=== PATIENT | male | born 1980 | race Caucasian/White ===

== ENCOUNTER 2016-10-31 16:47 | Inpatient (IN) | payer OTHER ==
[~2016-10-31] VITALS: Ht 167.6 cm; Wt 84.2 kg
[~2016-10-31 16:47] MED LIST: ALPRAZOLAM1 MG PO; AMBIEN; AMOXICILLIN875 MG PO; ANTABUSE; ANTABUSE250 MG PO; AUGMENTIN875 MG PO; BACTRIM DS TAB1 EACH PO; BACTRIM,SEPT1 TABLET; BACTRIM,SEPT1 TABLET PO; BENADRYL25 MG PO; BENADRYL50 MG PO; BUSPIRONE HCL15 MG PO; CAMPRAL333 MG PO; CELEXA; CELEXA10 MG PO; CITALOPRAM HBR20 MG PO; CLINDAMYCIN HC300 MG PO; CLONIDINE; Desyrel PO; ESCITALOPRAM OX20 MG PO; FLONASE16 G1 BOTH NARES; HYDROCODON-ACE1 EAC7 PO; KEFLEX500 MG PO; LEXAPRO; LEXAPRO10 MG PO; LORTAB 5-325 M1 EACH PO; MEDROL DOSEPAK4 MG PO; MELOXICAM7.5 MG PO; MOTRIN800 MG PO; NAPROSYN500 MG PO; NEO-SYNEPHRINE-15 ML BOTH NARES; NO HOME MEDS; NOHOMEMEDS; NORCO 10/3251 TABLET PO; NORCO 5/3251 TABLET PO; PERCOCET 5-3251 EACH PO; PERCOCET 5/31 TABLET PO; PREDNISONE10 M1 PO; QUETIAPINE FUM100 MG PO; ULTRACET1 TABLET PO; ULTRAM50 MG PO; VICODIN 5-3001 EACH PO; ZYRTEC10 M3 PO; celeXA PO
[2016-10-31 18:08] LABS: BASOPHIL COUNT 0.1 K/uL (0-0.1); EOSINOPHIL (%) 0.1 % (0-5); HEMATOCRIT 35.7 % (38.0-50.0); IMMATURE GRANULOCYTE (%) 0.9 % (0.0-0.7); IMMATURE GRANULOCYTE COUNT 0.2 K/uL; INSTRUMENT ABS NEUTROPHIL CT 18.4 K/uL; LYMPHOCYTE COUNT 0.9 K/uL (1.0-2.8); MCH 29.9 PG (29.0-34.0); MCHC 33.1 G/DL (30.0-36.0); MCV 90.4 FL (86-99); MEAN PLAT.VOLUME 9.8 uM^3 (9.0-12.4); MONOCYTE (%) 4.7 % (3-12); NEUTROPHIL (%) 89.3 % (45-76); NEUTROPHIL COUNT 18.4 K/uL (1.8-6.4); NRBC (%) 0.1 /100 WBC (0-0); PLATELET COUNT 234 K/uL (156-360); RBC DIS.WIDTH-CV 15.8 % (11.8-14.6); RBC DIS.WIDTH-SD 52.4 % (39-53); RED BLOOD COUNT 3.95 M/uL (4.00-5.50); WHITE BLOOD COUNT 20.6 K/uL (4.1-10.2)
[2016-10-31 18:13] LABS: BASE EXCESS 0.9 mEq/L (-3 to +3); BICARBONATE 27.1 mEq/L (22-26); CARBOXY HGB 6.1 % (0-5); METHEMOGLOBIN 1.6 % (0-1.5); PCO2 49 mm Hg (35-45); PO2 111 mm Hg (80-100); pH 7.35 (7.35-7.45)
[2016-10-31 18:14] LABS: COMMENTS - BLOOD GASES +C; DEVICE NRBM; FI02 100 %; O2 FLOW 20 L/MIN; SITE RR +A; TOTAL RESP RATE 20 resp/min
[2016-10-31 18:19] LABS: CHLORIDE 100 mEq/L (99-109); POTASSIUM 4.4 mEq/L (3.7-5.4); SODIUM 133 mEq/L (136-147)
[2016-10-31 18:21] LABS: GLUCOSE 120 mg/dL (70-99)
[2016-10-31 18:22] LABS: ANION GAP 9 MEQ/L (2-14)
[2016-10-31 18:23] LABS: TOTAL BILIRUBIN 0.6 mg/dL (0.0-1.0)
[2016-10-31 18:25] LABS: ALKALINE PHOSPHATASE 119 IU/L (3-129); GFR ESTIMATE (CALCULATED) > 59 mL/min/
[2016-10-31 18:26] LABS: UREA NITROGEN (BUN) 13 mg/dL (9-23)
[2016-10-31 19:01] LABS: ADD MIUA? YES; BILIRUBIN NEGATIVE; BLOOD NEGATIVE; COLOR AMBER ((YELLOW)); GLUCOSE (STRIP) NEGATIVE; KETONES 5; LEUKOCYTES NEGATIVE; NITRITE NEGATIVE; PROTEIN (STRIP) 100; SPECIFIC GRAVITY 1.019 (1.000-1.030)
[2016-10-31 19:08] LABS: BACTERIA RARE /HPF; EPITHELIAL CELLS RARE /HPF; HYALINE CASTS TNTC /LPF; MUCUS 3+ /LPF; RED BLOOD CELLS 0-5 /HPF (0-5); UCUL ADDED? NO
[2016-10-31 19:56] LABS: BASE EXCESS -4.3 mEq/L (-3 to +3); BICARBONATE 22.6 mEq/L (22-26); CARBOXY HGB 4.5 % (0-5); METHEMOGLOBIN 1.2 % (0-1.5); PCO2 48 mm Hg (35-45)
[2016-10-31 19:57] LABS: DEVICE HHNC; O2 FLOW 40 L/MIN; PO2 203 mm Hg (80-100); SITE LR; TOTAL RESP RATE 20 resp/min; pH 7.28 (7.35-7.45)
[2016-10-31] MEDS ORDERED: BUSPAR30 MG PO (19:58)
[2016-10-31] MEDS ORDERED: FLOVENT DISKUS1 DISK IH (19:58)
[2016-10-31] MEDS ORDERED: QUETIAPINE FUM300 MG PO (19:59)
[2016-10-31] MEDS ORDERED: BUPROPION HCL100 M1 PO (19:59)
[2016-10-31] MEDS ORDERED: PROAIR HFA8.5 GM IH (20:01)
[2016-10-31] MEDS ORDERED: CITALOPRAM HBR10 MG PO (20:02)
[2016-10-31 21:11] LABS: CREATINE KINASE 118 IU/L (1-294); TOTAL CK 118 IU/L (1-294)
[2016-10-31 21:17] LABS: CK-MB 3.3 ng/mL (0.0-4.9)
[2016-10-31 21:38] LABS: INFLUENZA A VIRAL ANTIGEN NEGATIVE; INFLUENZA B VIRAL ANTIGEN NEGATIVE
[2016-11-01] VITALS (19 sets, daily range): BP systolic 92–219; BP diastolic 53–135
[2016-11-01 07:51] LABS: BASE EXCESS -0.5 mEq/L (-3 to +3); BICARBONATE 26.9 mEq/L (22-26); CARBOXY HGB 1.9 % (0-5); METHEMOGLOBIN 1.5 % (0-1.5)
[2016-11-01 07:53] LABS: COMMENTS - BLOOD GASES AC+; O2 FLOW 40 L/MIN; PCO2 56 mm Hg (35-45); PO2 119 mm Hg (80-100); SITE RR
[2016-11-01 07:54] LABS: DEVICE HHFNC; FI02 50 %; pH 7.29 (7.35-7.45)
[2016-11-01 09:01] LABS: HEMATOCRIT 35.4 % (38.0-50.0); MCH 30.1 PG (29.0-34.0); MCHC 32.8 G/DL (30.0-36.0); MCV 91.9 FL (86-99); MEAN PLAT.VOLUME 9.8 uM^3 (9.0-12.4); NRBC (%) 0.1 /100 WBC (0-0); PLATELET COUNT 238 K/uL (156-360); RBC DIS.WIDTH-CV 16.1 % (11.8-14.6); RBC DIS.WIDTH-SD 54.4 % (39-53); RED BLOOD COUNT 3.85 M/uL (4.00-5.50); WHITE BLOOD COUNT 18.2 K/uL (4.1-10.2)
[2016-11-01 09:23] LABS: CHLORIDE 104 mEq/L (99-109); POTASSIUM 4.7 mEq/L (3.7-5.4); SODIUM 136 mEq/L (136-147)
[2016-11-01 09:25] LABS: GLUCOSE 213 mg/dL (70-99)
[2016-11-01 09:26] LABS: ANION GAP 6 MEQ/L (2-14)
[2016-11-01 09:28] LABS: ALKALINE PHOSPHATASE 117 IU/L (3-129); TOTAL BILIRUBIN 0.3 mg/dL (0.0-1.0)
[2016-11-01 09:29] LABS: GFR ESTIMATE (CALCULATED) > 59 mL/min/
[2016-11-01 09:30] LABS: DIRECT BILIRUBIN 0.2 mg/dL (0.0-0.3); UREA NITROGEN (BUN) 12 mg/dL (9-23)
[2016-11-01 09:49] LABS: INTERNAL CONTROL VALID? YES
[2016-11-01 10:30] LABS: METH RESISTANT S AUREUS PCR POSITIVE (NEGATIVE)
[2016-11-01 10:33] LABS: PROBE CHECK PASS
[2016-11-01 12:01] LABS: HIV INDEX 0.16; HIV-1/2 AB/AG COMBO Nonreactive
[2016-11-01 13:52] LABS: POINT-OF-CARE METER ID UU13113731
[2016-11-01 17:52] LABS: POINT-OF-CARE METER ID UU13113731
[2016-11-01 23:14] LABS: POINT-OF-CARE METER ID UU13113731; POINT-OF-CARE USER ID RADDRS44
[2016-11-02] VITALS (24 sets, daily range): BP systolic 106–145; BP diastolic 62–92
[2016-11-02 03:50] LABS: POINT-OF-CARE METER ID UU13113731; POINT-OF-CARE USER ID RADDRS44
[2016-11-02 06:29] LABS: POINT-OF-CARE METER ID UU14162636
[2016-11-02 06:58] LABS: HEMATOCRIT 34.8 % (38.0-50.0); MCHC 32.5 G/DL (30.0-36.0); MCV 92.3 FL (86-99); MEAN PLAT.VOLUME 10.6 uM^3 (9.0-12.4); NRBC (%) 0.4 /100 WBC (0-0); PLATELET COUNT 274 K/uL (156-360); RBC DIS.WIDTH-CV 16.7 % (11.8-14.6); RBC DIS.WIDTH-SD 56.1 % (39-53); RED BLOOD COUNT 3.77 M/uL (4.00-5.50); WHITE BLOOD COUNT 18.2 K/uL (4.1-10.2)
[2016-11-02 07:19] LABS: ANION GAP 8 MEQ/L (2-14); CHLORIDE 106 MEQ/L (99-109); GFR ESTIMATE (CALCULATED) > 59 mL/min/; MAGNESIUM 2.4 mg/dl (1.3-2.7); POTASSIUM 4.5 MEQ/L (3.7-5.4); SAMPLE HEMOLYSIS CHECK 0; SAMPLE ICTERIC CHECK 0; SAMPLE LIPEMIA CHECK 0; SODIUM 142 MEQ/L (136-147); UREA NITROGEN (BUN) 13 mg/dL (9-23)
[2016-11-02 07:20] LABS: GLUCOSE 109 mg/dL (70-99)
[2016-11-02 12:13] LABS: POINT-OF-CARE METER ID UU14162636
[2016-11-02 15:27] LABS: POINT-OF-CARE METER ID UU14162636
[2016-11-02 17:45] LABS: POINT-OF-CARE METER ID UU13113731
[2016-11-02 21:59] LABS: POINT-OF-CARE METER ID UU13113731; POINT-OF-CARE USER ID PHATLC
[2016-11-03] VITALS (24 sets, daily range): BP systolic 119–175; BP diastolic 78–117
[2016-11-03 06:02] LABS: HEMATOCRIT 35.2 % (38.0-50.0); MCH 29.4 PG (29.0-34.0); MCHC 31.8 G/DL (30.0-36.0); MCV 92.4 FL (86-99); MEAN PLAT.VOLUME 10.1 uM^3 (9.0-12.4); NRBC (%) 0.1 /100 WBC (0-0); PLATELET COUNT 308 K/uL (156-360); RBC DIS.WIDTH-CV 16.8 % (11.8-14.6); RED BLOOD COUNT 3.81 M/uL (4.00-5.50); WHITE BLOOD COUNT 15.8 K/uL (4.1-10.2)
[2016-11-03 06:05] LABS: BASE EXCESS 2.6 mEq/L (-3 to +3); BICARBONATE 27.9 mEq/L (22-26); CARBOXY HGB 1.8 % (0-5); COMMENTS - BLOOD GASES C+; DEVICE VENT; METHEMOGLOBIN 1.9 % (0-1.5); PCO2 45 mm Hg (35-45); PO2 75 mm Hg (80-100); SITE RR
[2016-11-03 06:06] LABS: FI02 35 %; MODE SPONT; PEEP 5 CM/H20; PRES. SUPPORT 10 CM/H2O; TOTAL RESP RATE 13 resp/min
[2016-11-03 06:22] LABS: ANION GAP 12 MEQ/L (2-14); CHLORIDE 106 MEQ/L (99-109); GFR ESTIMATE (CALCULATED) > 59 mL/min/; GLUCOSE 145 mg/dL (70-99); MAGNESIUM 2.4 mg/dl (1.3-2.7); POTASSIUM 4.5 MEQ/L (3.7-5.4); SAMPLE HEMOLYSIS CHECK 0; SAMPLE ICTERIC CHECK 0; SAMPLE LIPEMIA CHECK 0; SODIUM 142 MEQ/L (136-147); UREA NITROGEN (BUN) 14 mg/dL (9-23)
[2016-11-03 13:32] LABS: BASE EXCESS 4.1 mEq/L (-3 to +3); BICARBONATE 28.5 mEq/L (22-26); COMMENTS - BLOOD GASES A+C+; DEVICE NC; METHEMOGLOBIN 1.6 % (0-1.5); O2 FLOW 3 L/MIN; PCO2 41 mm Hg (35-45); PO2 68 mm Hg (80-100); SITE LR; TOTAL RESP RATE 14 resp/min; pH 7.45 (7.35-7.45)
[2016-11-04] VITALS (16 sets, daily range): BP systolic 133–166; BP diastolic 82–112
[2016-11-04 06:51] LABS: HEMATOCRIT 34.3 % (38.0-50.0); MCH 30.2 PG (29.0-34.0); MCHC 33.2 G/DL (30.0-36.0); MEAN PLAT.VOLUME 9.7 uM^3 (9.0-12.4); NRBC (%) 0.2 /100 WBC (0-0); PLATELET COUNT 320 K/uL (156-360); RBC DIS.WIDTH-CV 17.2 % (11.8-14.6); RBC DIS.WIDTH-SD 57.1 % (39-53); RED BLOOD COUNT 3.77 M/uL (4.00-5.50); WHITE BLOOD COUNT 16.8 K/uL (4.1-10.2)
[2016-11-04 07:17] LABS: ANION GAP 9 MEQ/L (2-14); CHLORIDE 108 MEQ/L (99-109); GFR ESTIMATE (CALCULATED) > 59 mL/min/; GLUCOSE 131 mg/dL (70-99); MAGNESIUM 2.3 mg/dl (1.3-2.7); POTASSIUM 4.3 MEQ/L (3.7-5.4); SAMPLE HEMOLYSIS CHECK 0; SAMPLE ICTERIC CHECK 0; SAMPLE LIPEMIA CHECK 0; SODIUM 144 MEQ/L (136-147); UREA NITROGEN (BUN) 17 mg/dL (9-23)
[2016-11-04 11:39] LABS: VANCOMYCIN, TROUGH 12.5 MCG/ML (10-20)
[2016-11-04 11:45] LABS: MAGNESIUM 2.3 mg/dl (1.3-2.7)
[2016-11-05 03:27] VITALS: BP 152/86
[2016-11-05 07:07] LABS: MCH 29.8 PG (29.0-34.0); MCHC 32.8 G/DL (30.0-36.0); MCV 90.9 FL (86-99); MEAN PLAT.VOLUME 9.7 uM^3 (9.0-12.4); PLATELET COUNT 344 K/uL (156-360); RBC DIS.WIDTH-SD 55.9 % (39-53); RED BLOOD COUNT 3.96 M/uL (4.00-5.50); WHITE BLOOD COUNT 14.9 K/uL (4.1-10.2)
[2016-11-05 07:34] VITALS: BP 154/90
[2016-11-05 07:36] LABS: ANION GAP 8 MEQ/L (2-14); CHLORIDE 104 MEQ/L (99-109); GFR ESTIMATE (CALCULATED) > 59 mL/min/; GLUCOSE 130 mg/dL (70-99); MAGNESIUM 2.3 mg/dl (1.3-2.7); POTASSIUM 4.1 MEQ/L (3.7-5.4); SAMPLE HEMOLYSIS CHECK 0; SAMPLE ICTERIC CHECK 0; SAMPLE LIPEMIA CHECK 0; SODIUM 141 MEQ/L (136-147); UREA NITROGEN (BUN) 13 mg/dL (9-23)
[2016-11-05 12:11] VITALS: BP 160/80
[2016-11-05 16:55] VITALS: BP 158/74
[2016-11-05 19:57] VITALS: BP 158/95
[2016-11-05 23:10] VITALS: BP 141/92
[2016-11-06 05:52] LABS: HEMATOCRIT 39.2 % (38.0-50.0); MCH 30.1 PG (29.0-34.0); MCHC 33.4 G/DL (30.0-36.0); MCV 90.1 FL (86-99); MEAN PLAT.VOLUME 9.7 uM^3 (9.0-12.4); PLATELET COUNT 411 K/uL (156-360); RBC DIS.WIDTH-CV 16.8 % (11.8-14.6); RBC DIS.WIDTH-SD 54.4 % (39-53); RED BLOOD COUNT 4.35 M/uL (4.00-5.50); WHITE BLOOD COUNT 15.6 K/uL (4.1-10.2)
[2016-11-06 06:46] LABS: ANION GAP 7 MEQ/L (2-14); CHLORIDE 104 MEQ/L (99-109); GFR ESTIMATE (CALCULATED) > 59 mL/min/; GLUCOSE 131 mg/dL (70-99); MAGNESIUM 2.3 mg/dl (1.3-2.7); POTASSIUM 4.2 MEQ/L (3.7-5.4); SAMPLE HEMOLYSIS CHECK 0; SAMPLE ICTERIC CHECK 0; SAMPLE LIPEMIA CHECK 0; SODIUM 142 MEQ/L (136-147); UREA NITROGEN (BUN) 14 mg/dL (9-23)
[2016-11-06 07:26] VITALS: BP 128/74
[2016-11-06 11:48] VITALS: BP 124/70
[2016-11-06 15:27] VITALS: BP 138/92
[2016-11-06 20:44] VITALS: BP 139/63
[2016-11-06 20:58] VITALS: BP 142/90
[2016-11-07 00:31] VITALS: BP 114/55
[2016-11-07 05:09] VITALS: BP 118/72
[2016-11-07 08:12] LABS: HEMATOCRIT 42.1 % (38.0-50.0); MCH 29.3 PG (29.0-34.0); MCHC 32.8 G/DL (30.0-36.0); MCV 89.4 FL (86-99); MEAN PLAT.VOLUME 9.1 uM^3 (9.0-12.4); PLATELET COUNT 432 K/uL (156-360); RBC DIS.WIDTH-CV 16.8 % (11.8-14.6); RBC DIS.WIDTH-SD 53.3 % (39-53); RED BLOOD COUNT 4.71 M/uL (4.00-5.50); WHITE BLOOD COUNT 14.1 K/uL (4.1-10.2)
[2016-11-07 08:39] LABS: ANION GAP 7 MEQ/L (2-14); CHLORIDE 104 MEQ/L (99-109); GFR ESTIMATE (CALCULATED) > 59 mL/min/; GLUCOSE 125 mg/dL (70-99); MAGNESIUM 2.6 mg/dl (1.3-2.7); SAMPLE HEMOLYSIS CHECK 0; SAMPLE ICTERIC CHECK 0; SAMPLE LIPEMIA CHECK 0; SODIUM 139 MEQ/L (136-147); UREA NITROGEN (BUN) 14 mg/dL (9-23)
[2016-11-07] MEDS ORDERED: FOLIC ACID1 MG PO (11:13)
[2016-11-07] MEDS ORDERED: Thiamine,Vitamin B1 PO (11:13)
[2016-11-07] MEDS ORDERED: THERAGRAN1 TABLET PO (11:16)
[2016-11-07] MEDS ORDERED: NICOTINE PATCH1 EAC2 TD (11:22)
[2016-11-07] MEDS ORDERED: LOSARTAN POTASS50 MG PO (11:22)
[2016-11-07] MEDS ORDERED: PREDNISONE20 MG PO (11:22)
[2016-11-07] MEDS ORDERED: NALTREXONE HCL50 MG PO (11:22)
[2016-11-07] MEDS ORDERED: LEVOFLOXACIN500 MG PO (11:22)
[2016-11-07 11:26] VITALS: BP 154/67
[2016-11-07 11:32] VITALS: BP 147/78
== END 2016-11-07 13:06 | disposition home or self-care (01) | DRG 208 ==
LOC: EME 16:47 → 4WEST 19:16 → EDOF 19:16 → 4EAST 11-01 00:41 → 4WEST 11-01 08:24 → 3EAST 11-04 14:20
PROVIDERS: Emergency Medicine; Internal Medicine; Internal Medicine Critical Care Medicine; Internal Medicine Nephrology; Internal Medicine Pulmonary Disease
DX: J15.4 Pneumonia due to other streptococci (principal); J96.01 Acute respiratory failure with hypoxia; E86.1 Hypovolemia; J45.909 Unspecified asthma, uncomplicated; F10.10 Alcohol abuse, uncomplicated; F31.9 Bipolar disorder, unspecified; F17.210 Nicotine dependence, cigarettes, uncomplicated; Z91.5 Personal history of self-harm
CPT/HCPCS: 36600; 71010; 71250; 80048; 80053; 80076; 80202; 80306 90; 81003; 82550; 82553; 82803; 82948; 83605; 83735; 83874 90; 84100; 85025; 85027; 86703; 87040; 87070; 87077; 87086; 87181; 87205; 87278; 87449; 87502; 87641; 94002; 94003; 94640; 94640 76; 94799; 97530 GO; 99202; 99281; 99285; J0330; J0360; J0456; J0696; J1100; J1644; J1650; J1815; J2250; J2543; J2704; J2920; J2930; J3010; J3360; J3370; J7040; J7050; J7120; J7512; J7644; S0028

== ENCOUNTER 2017-04-24 21:58 | Emergency (ER) | payer OTHER ==
[~2017-04-24 21:58] MED LIST changes: +BUPROPION HCL100 M1 PO; +BUSPAR30 MG PO; +CITALOPRAM HBR10 MG PO; +FLOVENT DISKUS1 DISK IH; +FOLIC ACID1 MG PO; +LEVOFLOXACIN500 MG PO; +LOSARTAN POTASS50 MG PO; +NALTREXONE HCL50 MG PO; +NICOTINE PATCH1 EAC2 TD; +PREDNISONE20 MG PO; +PROAIR HFA8.5 GM IH; +QUETIAPINE FUM300 MG PO; +THERAGRAN1 TABLET PO; +Thiamine,Vitamin B1 PO
[2017-04-25] MEDS ORDERED: BACTRIM,SEPT1 TABLET PO (14:48)
== END 2017-04-24 22:25 | disposition left against medical advice (07) ==
LOC: EME 21:58
DX: L02.415 Cutaneous abscess of right lower limb (principal)

== ENCOUNTER 2017-04-25 14:23 | Emergency (ER) | payer OTHER ==
[~2017-04-25] VITALS: Ht 162.6 cm; Wt 82.8 kg
[2017-04-25] MEDS ORDERED: BACTRIM,SEPT1 TABLET PO (14:48)
[2017-04-25 14:55] VITALS: BP 146/84
== END 2017-04-25 14:56 | disposition home or self-care (01) ==
LOC: EME 14:23
DX: L02.415 Cutaneous abscess of right lower limb (principal); Z91.030 Bee allergy status
CPT/HCPCS: 99281; 99283

== ENCOUNTER 2017-08-14 03:00 | Emergency (ER) | payer OTHER ==
[~2017-08-14] VITALS: Ht 165.1 cm; Wt 87.2 kg
[2017-08-14 04:31] LABS: APPEARANCE CLEAR ((CLEAR)); BILIRUBIN NEGATIVE; BLOOD NEGATIVE; COLOR STRAW ((YELLOW)); GLUCOSE (STRIP) NEGATIVE; KETONES NEGATIVE; LEUKOCYTES NEGATIVE; NITRITE NEGATIVE; PROTEIN (STRIP) NEGATIVE; SPECIFIC GRAVITY 1.003 (1.000-1.030); UROBILINOGEN 0.2 MG/DL (0.2-1.0)
[2017-08-14 04:39] LABS: AMPHETAMINE NEGATIVE (500 ng/mL); BARBITURATES NEGATIVE (200 ng/mL); BENZODIAZEPINES NEGATIVE (150 ng/mL); COCAINE NEGATIVE (150 ng/mL); METHADONE NEGATIVE (200 ng/mL); METHAMPHETAMINE NEGATIVE (500 ng/mL); OPIATES (MORPHINE) PRESUMPTIVE POSITIVE (100 ng/mL); OXYCODONE NEGATIVE (100 ng/mL); PHENCYCLIDINE NEGATIVE (25 ng/mL); PROPOXYPHENE NEGATIVE (300 ng/mL); THC CANNABINOIDS PRESUMPTIVE POSITIVE (50 ng/mL); TRICYCLIC ANTIDEPRESSANTS PRESUMPTIVE POSITIVE (300 ng/mL)
[2017-08-14 04:40] LABS: BUPRENORPHINE NEGATIVE (10 ng/mL)
[2017-08-14 05:35] VITALS: BP 104/66
== END 2017-08-14 05:39 | disposition home or self-care (01) ==
LOC: EME 03:00 → EXP 03:00
PROVIDERS: Physician Assistant
DX: T40.2X1A Poisoning by other opioids, accidental (unintentional), initial encounter (principal); J45.909 Unspecified asthma, uncomplicated; F31.9 Bipolar disorder, unspecified; K21.9 Gastro-esophageal reflux disease without esophagitis; F41.9 Anxiety disorder, unspecified; F17.200 Nicotine dependence, unspecified, uncomplicated
CPT/HCPCS: 81003; 84999; 99281; 99285

== ENCOUNTER 2017-08-27 01:53 | Inpatient (IN) | payer OTHER ==
[~2017-08-27] VITALS: Ht 172.7 cm; Wt 89.3 kg
[2017-08-27 02:45] LABS: HEMATOCRIT 40.7 % (38.0-50.0); HEMOGLOBIN 14.2 G/DL (12.5-16.6); MCH 29.8 PG (29.0-34.0); MCHC 34.9 G/DL (30.0-36.0); MCV 85.5 FL (86-99); RBC DIS.WIDTH-CV 15.7 % (11.8-14.6); RED BLOOD COUNT 4.76 M/uL (4.00-5.50); WHITE BLOOD COUNT 23.5 K/uL (4.1-10.2)
[2017-08-27 02:54] LABS: CHLORIDE 101 mEq/L (99-109); POTASSIUM 3.9 mEq/L (3.7-5.4); SODIUM 136 mEq/L (136-147)
[2017-08-27 02:56] LABS: GLUCOSE 94 mg/dL (70-99)
[2017-08-27 03:00] LABS: CREATININE 0.7 mg/dL (0.6-1.3); GFR ESTIMATE (CALCULATED) > 59 mL/min/ (58.99-99999)
[2017-08-27 03:01] LABS: UREA NITROGEN (BUN) 9 mg/dL (9-23)
[2017-08-27 03:31] LABS: PLATELET COUNT 240 K/uL (156-360)
[2017-08-27 03:32] LABS: PLAT.SUFFICIENCY ADEQUATE
[2017-08-27 03:36] LABS: CARBON DIOXIDE (BICARBONATE) 24.3 MEQ/L (20-31)
[2017-08-27 03:40] LABS: TOTAL PROTEIN 7.3 g/dL (6.4-8.3)
[2017-08-27 03:41] LABS: TOTAL BILIRUBIN 0.6 mg/dL (0.0-1.0)
[2017-08-27 03:42] LABS: ALKALINE PHOSPHATASE 111 IU/L (3-129); SERUM ETHYL ALCOHOL < 10 mg/dL
[2017-08-27 03:45] LABS: AST (GOT) 26 IU/L (2-34); DIRECT BILIRUBIN 0.2 mg/dL (0.0-0.3)
[2017-08-27 03:46] LABS: ALT (GPT) 19 IU/L (3-49)
[2017-08-27 03:49] LABS: TROP-I INTERPRETATION NEGATIVE; TROPONIN-I < 0.01 ng/mL (0.0-0.30)
[2017-08-27 04:59] LABS: BASOPHIL (%) 0.4 % (0-1); BASOPHIL COUNT 0.1 K/uL (0-0.1); EOSINOPHIL (%) 0.3 % (0-5); EOSINOPHIL COUNT 0.1 K/uL (0-0.3); IMMATURE GRANULOCYTE (%) 0.8 % (0.0-0.7); LYMPHOCYTE (%) 6.3 % (15-42); LYMPHOCYTE COUNT 1.4 K/uL (1.0-2.8); MONOCYTE (%) 7.3 % (3-12); MONOCYTE COUNT 1.6 K/uL (0-0.8); NEUTROPHIL (%) 84.9 % (45-76); NEUTROPHIL COUNT 19.1 K/uL (1.8-6.4)
[2017-08-27 06:12] VITALS: BP 137/79
[2017-08-27 07:20] VITALS: BP 112/56
[2017-08-27 12:11] VITALS: BP 118/70
[2017-08-27 16:00] LABS: TROP-I INTERPRETATION NEGATIVE; TROPONIN-I < 0.01 ng/mL (0.0-0.30)
[2017-08-27 16:06] VITALS: BP 156/77
[2017-08-27 16:09] LABS: BASE EXCESS 1.6 mEq/L (-3 to +3); BICARBONATE 25.9 mEq/L (22-26); CARBOXY HGB 3.4 % (0-5); COMMENTS - BLOOD GASES C+; DEVICE NC; METHEMOGLOBIN 1.8 % (0-1.5); O2 FLOW 3 L/MIN; PCO2 39 mm Hg (35-45); PO2 66 mm Hg (80-100); SITE LR; pH 7.43 (7.35-7.45)
[2017-08-27] MEDS ORDERED: BUSPAR10 MG PO (16:32)
[2017-08-27] MEDS ORDERED: ABILIFY10 MG PO (16:33)
[2017-08-27] MEDS ORDERED: CELEXA40 MG PO (16:33)
[2017-08-27] MEDS ORDERED: GABAPENTIN300 MG PO (16:34)
[2017-08-27] MEDS ORDERED: MS CONTIN,ORAMO15 M1 PO (16:34)
[2017-08-27] MEDS ORDERED: PERCOCET 10/1 TABLET PO (16:35)
[2017-08-27] MEDS ORDERED: COZAAR50 MG PO (16:36)
[2017-08-27 20:00] VITALS: BP 146/78
[2017-08-28] VITALS: BP 128/68
[2017-08-28 04:01] VITALS: BP 112/63
[2017-08-28 06:10] LABS: BASOPHIL (%) 0.1 % (0-1); EOSINOPHIL (%) 0 % (0-5); HEMOGLOBIN 12.3 G/DL (12.5-16.6); IMMATURE GRANULOCYTE (%) 1.1 % (0.0-0.7); LYMPHOCYTE (%) 4.1 % (15-42); LYMPHOCYTE COUNT 0.9 K/uL (1.0-2.8); MCH 28.1 PG (29.0-34.0); MCHC 32.4 G/DL (30.0-36.0); MCV 86.8 FL (86-99); MONOCYTE (%) 2.5 % (3-12); MONOCYTE COUNT 0.6 K/uL (0-0.8); NEUTROPHIL (%) 92.2 % (45-76); NEUTROPHIL COUNT 20.6 K/uL (1.8-6.4); PLATELET COUNT 283 K/uL (156-360); RBC DIS.WIDTH-CV 16.1 % (11.8-14.6); RBC DIS.WIDTH-SD 51.7 % (39-53); RED BLOOD COUNT 4.38 M/uL (4.00-5.50); WHITE BLOOD COUNT 22.4 K/uL (4.1-10.2)
[2017-08-28 06:35] LABS: CHLORIDE 110 MEQ/L (99-109); CREATININE 0.5 MG/DL (0.6-1.3); GFR ESTIMATE (CALCULATED) > 59 mL/min/ (58.99-99999); GLUCOSE 237 mg/dL (70-99); MAGNESIUM 2.1 mg/dl (1.3-2.7); PHOSPHORUS 2.2 mg/dL (2.5-4.9); POTASSIUM 3.5 MEQ/L (3.7-5.4); SODIUM 140 MEQ/L (136-147); UREA NITROGEN (BUN) 9 mg/dL (9-23)
[2017-08-28 07:45] VITALS: BP 175/81
[2017-08-28 11:45] VITALS: BP 135/70
[2017-08-28 16:03] VITALS: BP 143/76
[2017-08-28 19:35] VITALS: BP 140/78
[2017-08-29 08:51] VITALS: BP 176/80
[2017-08-29] MEDS ORDERED: LEVOFLOXACIN750 MG PO (11:08)
[2017-08-29] MEDS ORDERED: NICOTINE PATCH1 EAC2 TD (11:08)
[2017-08-29] MEDS ORDERED: MEDROL DOSEPAK4 MG PO (11:09)
[2017-08-29 11:24] LABS: HEMATOCRIT 38.1 % (38.0-50.0); HEMOGLOBIN 12.8 G/DL (12.5-16.6); MCH 29.3 PG (29.0-34.0); MCHC 33.6 G/DL (30.0-36.0); MCV 87.2 FL (86-99); NRBC (%) 0.1 /100 WBC (0-0); PLATELET COUNT 306 K/uL (156-360); RBC DIS.WIDTH-CV 16.6 % (11.8-14.6); RBC DIS.WIDTH-SD 52.8 % (39-53); RED BLOOD COUNT 4.37 M/uL (4.00-5.50); WHITE BLOOD COUNT 22.7 K/uL (4.1-10.2)
[2017-08-29 11:58] VITALS: BP 147/90
[2017-08-29 11:58] LABS: CHLORIDE 108 MEQ/L (99-109); POTASSIUM 3.8 MEQ/L (3.7-5.4); SODIUM 141 MEQ/L (136-147)
[2017-08-29 12:03] LABS: CREATININE 0.5 MG/DL (0.6-1.3); GFR ESTIMATE (CALCULATED) > 59 mL/min/ (58.99-99999); GLUCOSE 127 mg/dL (70-99); UREA NITROGEN (BUN) 9 mg/dL (9-23)
== END 2017-08-29 13:26 | disposition home or self-care (01) | DRG 189 ==
LOC: EME 01:53 → EDOF 03:18 → ENRESERV 03:19 → 5SOUTH 05:28 → ENPENDDIS 08-29 13:20 → 5SOUTH 08-29 13:26
PROVIDERS: Emergency Medicine; Hospitalist; Internal Medicine; Physician Assistant Medical
DX: J96.01 Acute respiratory failure with hypoxia (principal); J18.9 Pneumonia, unspecified organism; J44.0 Chronic obstructive pulmonary disease with (acute) lower respiratory infection; J44.1 Chronic obstructive pulmonary disease with (acute) exacerbation; E83.39 Other disorders of phosphorus metabolism; F11.23 Opioid dependence with withdrawal; F10.20 Alcohol dependence, uncomplicated; Y90.0 Blood alcohol level of less than 20 mg/100 ml; F12.90 Cannabis use, unspecified, uncomplicated; F31.9 Bipolar disorder, unspecified; F41.9 Anxiety disorder, unspecified; G89.29 Other chronic pain; F17.200 Nicotine dependence, unspecified, uncomplicated; Z87.01 Personal history of pneumonia (recurrent)
CPT/HCPCS: 36600; 71046; 71275; 80048; 80076; 81003; 82803; 83605; 83735; 84100; 84484; 85025; 85027; 87040; 87070; 87205; 87449; 87502; 93005; 94640; 94640 76; 94799; 99202; 99281; 99285; G0480; J0295; J0456; J0696; J1650; J1885; J2920; J3411; J7030; J7050; J7120; J7512

== ENCOUNTER 2017-12-30 21:40 | Emergency (ER) | payer OTHER ==
[~2017-12-30] VITALS: Ht 167.6 cm; Wt 84.2 kg
[~2017-12-30 21:40] MED LIST changes: +ABILIFY10 MG PO; +BUSPAR10 MG PO; +CELEXA40 MG PO; +COZAAR50 MG PO; +GABAPENTIN300 MG PO; +LEVOFLOXACIN750 MG PO; +MS CONTIN,ORAMO15 M1 PO; +PERCOCET 10/1 TABLET PO
[2017-12-31 00:16] VITALS: BP 152/100
== END 2017-12-31 00:17 | disposition home or self-care (01) ==
LOC: EME 21:40 → RME 21:40
PROC: 0HQFXZZ Repair Right Hand Skin, External Approach (ICD-10-PCS; principal; 2017-12-30)
DX: S61.216A Laceration without foreign body of right little finger without damage to nail, initial encounter (principal); W25.XXXA Contact with sharp glass, initial encounter; Y93.G1 Activity, food preparation and clean up; F17.200 Nicotine dependence, unspecified, uncomplicated
CPT/HCPCS: 99281; 99284

== ENCOUNTER 2018-01-09 17:31 | Emergency (ER) | payer OTHER ==
[~2018-01-09] VITALS: Ht 167.6 cm; Wt 81.9 kg
[2018-01-09 17:58] VITALS: BP 114/92
== END 2018-01-09 17:59 | disposition home or self-care (01) ==
LOC: EME 17:31
DX: S61.216D Laceration without foreign body of right little finger without damage to nail, subsequent encounter (principal); F17.200 Nicotine dependence, unspecified, uncomplicated
CPT/HCPCS: 99281; 99284

== ENCOUNTER 2018-01-13 19:21 | Emergency (ER) | payer OTHER ==
[~2018-01-13] VITALS: Ht 167.6 cm; Wt 81.6 kg
[2018-01-13] MEDS ORDERED: ROXICODONE5 MG PO (22:01)
[2018-01-13 22:28] VITALS: BP 152/112
== END 2018-01-13 22:29 | disposition home or self-care (01) ==
LOC: EME 19:21
DX: S46.211A Strain of muscle, fascia and tendon of other parts of biceps, right arm, initial encounter (principal); Y93.H3 Activity, building and construction; Y92.69 Other specified industrial and construction area as the place of occurrence of the external cause; I10 Essential (primary) hypertension; G89.29 Other chronic pain; M54.2 Cervicalgia; J43.9 Emphysema, unspecified; J45.909 Unspecified asthma, uncomplicated; K21.9 Gastro-esophageal reflux disease without esophagitis; F31.9 Bipolar disorder, unspecified; F17.200 Nicotine dependence, unspecified, uncomplicated; Z87.19 Personal history of other diseases of the digestive system; Z91.030 Bee allergy status
CPT/HCPCS: 73030; 73060; 99281; 99283